=== PATIENT | male | born 1945 | race Caucasian/White ===

== ENCOUNTER → 2017-02-14 | Outpatient (CLI) | payer MEDICARE, BC ==
[~2017-02-14] MED LIST: ADVA100A INH; ASPI81CH CHEW; CIAL5TAB PO; CYAN1TAB24 PO; D32000TA; LISI40TA PO; METF500T PO; METO25TA3 PO; MULT1TAB64; SIMV40TA PO; TAMS0.4C4 PO; VESI10TA PO
--- NOTE | 2017-02-22 10:58 | RADRPT ---
EXAM DATE/TIME: 02/14/2017 13:58 [facility] COMPARISON : No previous studies available for comparison. INDICATIONS : Evaluate chart and images for possible cryoablation HISTORY OF PRESENT ILLNESS: 71-year-old gentleman with a 2.7 cm lesion on the left kidney identified on outside postcontrast CTA of the abdomen. One review, I believe that there is some fat density mass lesion suggesting an a ngiomyolipoma. As such, I would recommend a noncontrasted CT scan of the abdomen for confirmation. IMAGING STUDIES: Outside CTA of the abdomen dated 01-31-2017 ASSESSMENT: 2.7 cm lesion in the left kidney appears to contain some fat density and may represent an angiomyolip harshad. PLAN: Noncontrasted CT scan of the abdomen is suggested for confirmation. TIME SPENT: 20 minutes Ced Damon MD on February 22, 2017 at 10:52 Board Certified Radiologist. This report was verified electronically.
== END ==
LOC: HRAD 12:48
PROVIDERS: ATTEND Urology
DX: N28.9 Disorder of kidney and ureter, unspecified (principal)

== ENCOUNTER 2017-03-21 13:48 | Day surgery (SDC) | payer MEDICARE, BC ==
[2017-03-21] MEDS ORDERED: ADVA100A INH (14:07)
[2017-03-21] MEDS ORDERED: VESI10TA PO (14:07)
[2017-03-21] MEDS ORDERED: CIAL5TAB PO (14:07)
[2017-03-21] MEDS ORDERED: SIMV40TA PO (14:07)
[2017-03-21] MEDS ORDERED: MULT1TAB64 (14:07)
[2017-03-21] MEDS ORDERED: METO25TA3 PO (14:07)
[2017-03-21] MEDS ORDERED: TAMS0.4C4 PO (14:07)
[2017-03-21] MEDS ORDERED: ASPI81CH CHEW (14:07)
[2017-03-21] MEDS ORDERED: METF500T PO (14:07)
[2017-03-21] MEDS ORDERED: CYAN1TAB24 PO (14:07)
[2017-03-21] MEDS ORDERED: LISI40TA PO (14:07)
[2017-03-21] MEDS ORDERED: D32000TA (14:07)
[2017-03-21 14:14] VITALS: BP 115/80; PULSE 88; RESP 18; TEMP 98; O2SAT 92
--- NOTE | 2017-03-21 16:40 | RADRPT ---
EXAM DATE/TIME: 03/21/2017 14:13 [facility] COMPARISON : INDICATIONS : Left renal mass biopsy with cryoablation OBJECTIVE: Temperature: 98.0 Heart Rate: 88 Blood Pressure: 115/80 Respiratory: 18 Oximetry: 92 PNEUMONIA VACCINE: YES HISTORY OF PRESENT ILLNESS: 71-year-old male with history of incidentally diagnosed 2.7 cm left renal mass following CTA examinat ion for apparent left leg claudication. He does have a history of both prostate CA and bladder CA sta tus post recent pelvic floor strengthening with apparent excellent results. Currently he is without n ew urinary complaints and denies hematuria or unintentional weight loss. PAST MEDICAL HISTORY : 1. Hypertension. 2. Chronic obstructive pulmonary disease. 3. Bladder Cancer 4. Prostate Cancer 5. Hypercholesterolemia. 6. Diabetes mellitus type 2. PAST SURGICAL HISTORY : 1. Inguinal Hernia Repair SOCIAL HISTORY : Social alcohol use. Social alcohol use. Tobacco; ALLERGIES: 1. Penicillin MEDICATIONS: 1. Xvesath23 mg q.d. 2. Fluticasone, Salmeterol mcg b.i.d. 3. Metoprolol 25 mg b.i.d. 4. Metformin 500 mg b.i.d. 5. Lisinopril 40 mg q.d. 6. Vesicare 10 mg q.d. 7. Simvastatin 40 mg q.d. 8. Cialis 5 mg q.d. 9. Multivitamin mg q.d. PHYSICAL EXAMINATION: General: Well-nourished and in no acute distress. Abdomen: Soft and nontender. IMAGING STUDIES: CT examination dated 02/26/2017 demonstrates a solid 3 cm mass arising from the anterior left mid renal pole without evidence for macroscopic fat. Outside CTA examination of the abdomen is unavailable for review but report confirms that this mass enhances. No evidence for perinephric extension. ASSESSMENT: 71-year-old male with history of incidentally diagnosed solid 3 cm anterior mid left renal pole mass. Although he has a history of bladder CA, this mass does not appear to be urothelial and is most cons istent with renal cell carcinoma. Extended discussion regarding surgical options versus biopsy and th ermal ablation with the patient and his . All questions were answered. Technically, this mass is moderately challenging for ablation due to anterior location and proximity to loops of small bowel which may require hydro or pneumo dissection. The R,E.N.A.L. score is 7, med ium complexity. PLAN: Tentative plan for percutaneous CT-guided biopsy and cryoablation. TIME SPENT: 25 minutes Law Smart MD on March 21, 2017 at 16:09 Board Certified Radiologist. This report was verified electronically.
== END 2017-03-21 16:06 | disposition home or self-care (01) ==
LOC: HROP 13:48 → HRIP 13:49 → HROP 16:06
PROVIDERS: ATTEND Urology
DX: N28.9 Disorder of kidney and ureter, unspecified (principal); I10 Essential (primary) hypertension; E11.9 Type 2 diabetes mellitus without complications; E78.00 Pure hypercholesterolemia, unspecified; Z85.46 Personal history of malignant neoplasm of prostate; Z85.51 Personal history of malignant neoplasm of bladder
CPT/HCPCS: 99213; G0463

== ENCOUNTER 2017-04-12 07:17 | Inpatient (IN) | payer MEDICARE, BC ==
[~2017-04-12] VITALS: Ht 175.3 cm; Wt 91.1 kg
[2017-04-12 07:54] VITALS: BP 111/70; PULSE 73; RESP 18; TEMP 97.6; O2SAT 93
[2017-04-12 07:59] LABS: BASOPHIL % 0.6 % (0.0-2.0); EOSINOPHIL # 0.3 TH/MM3 (0-0.4); EOSINOPHIL % 3.9 % (0.0-4.0); HEMATOCRIT 44.9 % (39.0-51.0); HEMO FLAGS DIFF FINAL; LYMPH % 39.9 % (9.0-44.0); LYMPHOCYTE # 2.6 TH/MM3 (1.0-4.8); MEAN CELL VOLUME 96.2 FL (80.0-100.0); MEAN CORPUSCULAR HEMOGLOBIN 32.6 PG (27.0-34.0); MEAN CORPUSCULAR HGB CONC 33.9 % (32.0-36.0); MONO % 8.7 % (0.0-8.0); NEUT % 46.9 % (16.0-70.0); PLATELET COUNT 182 TH/MM3 (150-450); RED BLOOD COUNT 4.67 MIL/MM3 (4.50-5.90); RED CELL DISTRIBUTION WIDTH 13.4 % (11.6-17.2); WHITE BLOOD COUNT 6.4 TH/MM3 (4.0-11.0)
[2017-04-12 08:16] LABS: PROTHROMBIN TIME - PATIENT 10.7 SEC (9.8-11.6)
[2017-04-12 08:17] LABS: APTT (PATIENT) 28.1 SEC (24.3-30.1); BICARBONATE 26.6 MEQ/L (21.0-32.0); POTASSIUM 3.9 MEQ/L (3.5-5.1)
[2017-04-12] MEDS ORDERED: LACTATED RINGER'S 1000 ML IV PRN (08:30)
[2017-04-12] MEDS ORDERED: INSULIN HUMAN REGULAR 1,000 UNITS/10 ML VIAL SQ PRN (08:30)
[2017-04-12] MEDS ORDERED: SODIUM CHLORID 0.9% 500 ML IV PRN (08:30)
[2017-04-12] MEDS ORDERED: CHLORHEXIDINE GLUCONATE 2 % 1 PACK (2 CLOTHS) TOPICAL PRN (08:30)
[2017-04-12] MEDS ORDERED: POVIDONE IODINE 5% (ANTISEPSIS KIT) 4 APPLICATIONS EACH NARE PRN (08:30)
[2017-04-12] MEDS: SODIUM CHLOR 0.9% 1000 ML INJ 1,000 ML IV SCH ×2 (08:30→15:43)
[2017-04-12] MEDS ORDERED: METOPROLOL TARTRATE 25 MG TAB PO PRN (08:30)
[2017-04-12] MEDS ORDERED: PROPOFOL 200 MG/20 ML AMP IV ONE (08:56)
[2017-04-12] MEDS ORDERED: ONDANSETRON HCL 4 MG/2 ML VIAL IV PUSH ONE (08:57)
[2017-04-12] MEDS ORDERED: PHENYLEPH/NS 1000 MCG/10 ML SYR IV ONE (08:57)
[2017-04-12] MEDS ORDERED: LIDOCAINE 1%/EPINEPHrine 1:100,000 SOLN 20 ML VIAL ONE ×3 (09:29→10:40)
[2017-04-12] MEDS ORDERED: LEVOFLOXACIN 500 MG PREMIX INJ 100 ML IV SCH (11:00)
[2017-04-12] MEDS ORDERED: *RESP: ALBUTEROL 2.5 MG/3 ML NEB (PRN) PERIprocedural Use ONLY NEB ONE (14:19)
[2017-04-12] MEDS ORDERED: DO NOT ADM ANY ANTICOAGULANT DRUGS PRN (14:30)
[2017-04-12] MEDS ORDERED: MIDAZOLAM HCL 2 MG/2 ML VIAL ONE (14:41)
[2017-04-12 14:48] LABS: HEMATOCRIT 42.8 % (39.0-51.0); REVIEW FLAG FINAL
[2017-04-12] MEDS ORDERED: HYDROmorphone HCL PF 1 MG/ML VIAL IV PUSH PRN (15:00)
--- NOTE | 2017-04-12 15:05 | EKG ---
Date Performed: 04/12/2017 Time Performed: 07:49:02 PTAGE: 71 years EKG: Sinus rhythm WITH OCCASIONAL VENTRICULAR PREMATURE COMPLEXES MARKED LEFT AXIS DEVIATION RIGHT BUNDLE BRANCH BLOCK ABNORMAL ECG NO PREVIOUS TRACING DOCTOR: Andreina Aceves Interpretating Date/Time 04/12/2017 14:59:04
--- NOTE | 2017-04-12 15:10 | RADRPT ---
EXAM DATE/TIME: 04/12/2017 14:28 [facility] COMPARISON: No previous studies available for comparison. INDICATIONS : Pneumothorax. MEDICAL HISTORY : None. SURGICAL HISTORY : None. ENCOUNTER: Initial ACUITY: 1 day PAIN SCORE: 0/10 LOCATION: Left chest FINDINGS: Four-view left chest demonstrates a slightly elevated left hemidiaphragm. There is a le ft-sided pigtail catheter that is barely entering the thoracic cavity. I do not see a pneumothorax b ut there is no significant pleural effusion. CONCLUSION: Pigtail catheter on the left side in uncertain position, it may not be within the tho racic cavity. No pneumothorax or significant pleural effusion seen. Jose Luis Cho MD on April 12, 2017 at 15:07 Board Certified Radiologist. This report was verified electronically.
--- NOTE | 2017-04-12 15:57 | RADRPT ---
EXAM DATE/TIME: 04/12/2017 15:34 [facility] COMPARISON: CHEST EXPIRATION ONLY, April 12, 2017, 14:28. INDICATIONS : Chest tube removal, shortness of breath. MEDICAL HISTORY : None. SURGICAL HISTORY : None. ENCOUNTER: Subsequent ACUITY: 1 day PAIN SCORE: 2/10 LOCATION: Left chest. FINDINGS: Interval removal of the dislodged left-sided chest tube. No significant pneumothorax. Elevation of th e left hemidiaphragm. Mild airspace disease in the lower lobes bilaterally likely reflecting atelecta sis. Remainder of the exam is unchanged. CONCLUSION: 1. No significant pneumothorax following removal of dislodged chest tube. 2. Minimal bibasilar atelectasis. Law Smart MD on April 12, 2017 at 15:53 Board Certified Radiologist. This report was verified electronically.
--- NOTE | 2017-04-12 16:07 | RADRPT ---
EXAM DATE/TIME: 04/12/2017 11:46 INDICATIONS : 71-year-old male with history of 2.7 cm left anterior mid renal pole mass. Anesthesia and pain control was provided by the Anesthesia department. DEVICE(S): 1.) 18 gauge Bowers blunt needle MEDICAL HISTORY : Chronic obstructive pulmonary disease. Diabetes mellitus type 2. Peripheral vascular disease. Hyperte nsion. SURGICAL HISTORY : Inguinal hernia repair. ENCOUNTER: Initial ACUITY: 1 day PAIN SCORE: 0/10 LOCATION: Left flank PROCEDURE : 1. 20 gauge core biopsies of renal mass 2. Challenging CT guided cryoablation requiring hydro-dissection of the colon Under sterile conditions and using aseptic technique with CT guidance the mass was localized and sati sfactory approach was taken to access the lesion. Using automated exposure control and adjustment of the mA and/or kV according to patient size, radiation dose was kept as low as reasonably achievable to obtain optimal diagnostic quality images. DICOM format image data is available electronically for review and comparison. [employer] were employed using percutaneous technique employing the prescribed probes. 18 gauge blunt tip Bowers needle was advanced along the anterior perirenal space with anterior to m id pole mass. Approximately 100 cc of normal saline was then slowly injected through the needle. CT e xamination demonstrated excellent hydro dissection achieved with the abutting portion of the colon. N ext, a 20 gauge Temno biopsy device was advanced into the mass. Three core biopsies were obtained and submitted for pathology. A freeze-thaw, freeze-thaw technique was then employed and serial imaging demonstrated an ice ball encompassing the entire lesion. Post procedure images demonstrate expected postoperative changes without evidence of hematoma. CONCLUSION: 1. Challenging but technically successful cryoablation of a 2.7 cm left anterior mid renal pole mass. 2. Small procedural left sided pneumothorax treated with placement of small chest tube. Anticipate ch allenge with removal this p.m. or tomorrow a.m.. Law Smart MD on April 12, 2017 at 15:58 Board Certified Radiologist. This report was verified electronically.
--- NOTE | 2017-04-12 16:12 | RADRPT ---
EXAM DATE/TIME: 04/12/2017 11:46 INDICATIONS : Pneumothorax. Anesthesia and pain control was provided by the Anesthesia department. DEVICE(S): 1.) 18 gauge Bowers blunt needle 2.) 8 Fr [place] MEDICAL HISTORY : Chronic obstructive pulmonary disease. Diabetes mellitus type 2. Peripheral vascular disease. Hyperte nsion. SURGICAL HISTORY : Inguinal hernia repair. ENCOUNTER: Initial ACUITY: 1 day PAIN SCORE: 0/10 LOCATION: Left chest PROCEDURE : 1. CT guided chest tube placement for treatment of intraprocedural pneumothorax. The risks, benefits and alternatives to the procedure were explained and verbal and written consent w as obtained. The site was prepped in sterile fashion. Full sterile technique was used, including ca p, mask, sterile gloves and gown and a large sterile sheet. Hand hygiene and 2% chlorhexidine and/or betadine/alcohol prep was utilized per protocol for cutaneous antisepsis. The skin and subcutaneous tissues were infiltrated with local anesthetic solution. Using automated exposure control and adjus tment of the mA and/or kV according to patient size, radiation dose was kept as low as reasonably ach ievable to obtain optimal diagnostic quality images. DICOM format image data is available electronic ally for review and comparison. Following patient positioning in decubitus position, an appropriate overlying patient's left renal ma ss was marked. Skin was prepped and draped in usual sterile fashion. 1% lidocaine solution was inject ed for anesthesia. An 18 gauge Bowers needle was then advanced to approximately [address] scan was performed. This demonstrated interval significant diaphragmatic excursion with inferior displacement of the left lower lobe resulting in needle positioning in the very peripheral distal left lung base. Needle was therefore repositioned more caudally. At this time, CT examination demonstrated developme nt of a small left-sided pneumothorax. Decision was to proceed with placement of chest tube to allow continuation of the planned ablation procedure. A short Prather wire was advanced through the needle an d a small 8 Mont[place]erratian catheter was advanced [id number] and formed in the pleural space. This was then connected to Pleur-evac suction which resulted in near-complete resolution of the left-sided pneumot horax. Catheter was then secured to the skin and planned ablation procedure was continued. CONCLUSION: 1. Placement of 8 [place]errat[place] left-sided chest tube for treatment of intraprocedural pneumothorax during p erformance of left renal mass cryoablation. Law Smart MD on April 12, 2017 at 16:05 Board Certified Radiologist. This report was verified electronically.
[2017-04-12 17:09] VITALS: BP 115/64; PULSE 98; RESP 18; TEMP 97.5; O2SAT 94
[2017-04-12] MEDS ORDERED: LACTULOSE SYRUP 20 GM/30 ML CUP PO PRN (18:00)
[2017-04-12] MEDS ORDERED: MAGNESIUM HYDROXIDE SUSP 30 ML CUP PO PRN (18:00)
[2017-04-12] MEDS ORDERED: BISACODYL 10 MG SUPP RECTAL PRN (18:00)
[2017-04-12] MEDS ORDERED: SENNOSIDES 8.6 MG TAB PO PRN (18:00)
[2017-04-12] MEDS ORDERED: ONDANSETRON HCL 4 MG/2 ML VIAL IVP PRN (18:00)
[2017-04-12] MEDS ORDERED: SODIUM CHLORIDE 0.9% FLUSH 10 ML FLUSH IV FLUSH PRN (18:00)
[2017-04-12] MEDS ORDERED: NALOXONE HCL 0.4 MG/ML AMP IV PRN (18:00)
[2017-04-12] MEDS ORDERED: ACETAMINOPHEN 325 MG TAB PO PRN (18:00)
--- NOTE | 2017-04-12 18:04 | HHI.HP ---
[facility] Primary Care Physician Clay Valerio MD Admission Diagnosis Diagnoses: Chief Complaint: Pneumothorax after renal cryoablation and biopsy Travel History International Travel<30 Days: No Contact w/Intl Traveler <30 Da: No Traveled to Known Affected Are: No History of Present Illness This is a 71-year-old male hospitalized to 2 diabetes, COPD, hypertension, peripheral vascular disease, left kidney tumor who presented as outpatient from with left cryoablation and biopsy resulting from complications of a pneumothorax. Chest tube was placed but in the PACU patient removed the chest tube in which a chest x-ray was repeated which did not show any significant pneumothorax. Patient was seen after being transferred from the PACU. He was very anxious to go. He denies any shortness of breathing, chest pain, lightheadedness or dizziness, or palpitations. His only complaint was pain at the wound site. His and nurse at the bedside during the interview. Review of Systems Constitutional: DENIES: Diaphoretic episodes, Fatigue, Fever, Weight gain, Weight loss, Chills, Dizziness, Change in appetite, Night Sweats Endocrine: DENIES: Heat/cold intolerance, Polydipsia, Polyuria, Polyphagia Eyes: DENIES: Blurred vision, Diplopia, Eye inflammation, Eye pain, Vision loss , Photosensitivity, Double Vision Ears, nose, mouth, throat: DENIES: Tinnitus, Hearing loss, Vertigo, Nasal discharge, Oral lesions, Throat pain, Hoarseness, Ear Pain, Running Nose, Epistaxis, Sinus Pain, Toothache, Odynophagia Respiratory: DENIES: Apneas, Cough, Snoring, Wheezing, Hemoptysis, Sputum production, Shortness of breath Cardiovascular: DENIES: Chest pain, Palpitations, Syncope, Dyspnea on Exertion , PND, Lower Extremity Edema, Orthopnea, Claudication Gastrointestinal: DENIES: Abdominal pain, Black stools, Bloody stools, Constipation, Diarrhea, Nausea, Vomiting, Difficulty Swallowing, Anorexia Genitourinary: DENIES: Sexual dysfunction, Urinary frequency, Urinary incontinence, Urgency, Hematuria, Dysuria, Nocturia, Penile Discharge, Testicular Pain, Testicular Swelling Musculoskeletal: DENIES: Joint pain, Muscle aches, Stiffness, Joint Swelling, Back pain, Neck pain Integumentary: DENIES: Abnormal pigmentation, Nail changes, Pruritus, Rash Hematologic/lymphatic: DENIES: Bruising, Lymphadenopathy Immunologic/allergic: DENIES: Eczema, Urticaria Neurologic: DENIES: Abnormal gait, Headache, Localized weakness, Paresthesias, Seizures, Speech Problems, Tremor, Poor Balance Psychiatric: DENIES: Anxiety, Confusion, Mood changes, Depression, Hallucinations, Agitation, Suicidal Ideation, Homicidal Ideation, Delusions Pain at wound site. Past Family Social History Past Medical History 2 diabetes, COPD, hypertension, left kidney tumor, peripheral vascular disease, history of bladder cancer, history of prostate cancer, squamous cell carcinoma the skin, ulnar nerve neuropathy Past Surgical History Hernia repair seeding of prostate Cataract removal Reported Medications Centrum Silver Men Tablet (Multivit-Min/FA/Lycopen/Lutein) 1 Each Tablet D3 (Cholecalciferol) 2,000 Unit Tab B12 (Cyanocobalamin) 1,000 Mcg Tab 2,500 Mcg PO DAILY Cialis (Tadalafil) 5 Mg Tab 5 Mg PO DAILY Do not exceed 1 dose/day. Simvastatin 40 Mg Tab 40 Mg PO HS Vesicare (Solifenacin) 10 Mg Tab 10 Mg PO DAILY Tamsulosin (Tamsulosin HCl) 0.4 Mg Cap 0.4 Mg PO HS Lisinopril 40 Mg Tab 40 Mg PO DAILY Metformin (Metformin HCl) 500 Mg Tab 500 Mg PO BIDPC With meals Metoprolol Tartrate 25 Mg Tab 25 Mg PO BID Advair Diskus Inh (Fluticasone-Salmeterol Inh) 100-50 Mcg/Blist Aer 1 Puff INH BID Rinse mouth after use. Aspirin 81 Mg Chew 81 Mg CHEW DAILY Allergies: Coded Allergies: Penicillin (Verified Allergy, Severe, anphalis, 04/12/17) Active Ordered Medications Current Medications Lactated Ringer's 1,000 ml @ 30 mls/hr Q24H PRN IV SEE LABEL COMMENTS; Start at 08:30; Stop 04/15/17 at 08:29 Sodium Chloride (NS 500 ml Inj) 500 ml @ 30 mls/hr [id number] PRN IV SEE LABEL COMMENTS; Start 04/12/17 at 08:30; Stop 04/15/17 at 08:29 Metoprolol Tartrate (Lopressor) 25 mg USABILITY ARCHITECT PRN PO SEE LABEL COMMENTS; Start 04/12/17 at 08:30; Stop 04/15/17 at 08:29 Povidone Iodine (Betadine 5% Antisepsis Kit) 1 applic USABILITY ARCHITECT PRN EACH NARE SEE LABEL COMMENTS; Start 04/12/17 at 08:30; Stop 04/15/17 at 08:29 Chlorhexidine Gluconate (Chlorhexidine 2% Cloth) 3 pack USABILITY ARCHITECT PRN TOPICAL SEE LABEL COMMENTS; Start 04/12/17 at 08:30; Stop 04/15/17 at 08:29 Insulin Human Regular See Protocol Table ... USABILITY ARCHITECT PRN SQ SEE PROTOCOL TABLE ; Start 04/12/17 at 08:30; Stop 04/15/17 at 08:29 Sodium Chloride (NS 1000 ml Inj) 1,000 ml @ 30 mls/hr Q24H IV Last administered on 04/12/17 15:43; Start 04/12/17 at 08:30 Lidocaine/ Epinephrine (Xylocaine-Epi 1%-1:100,000 Inj) 20 ml STK-MED ONCE .ROUTE ; Start 04/12/17 at 09:29; Stop 04/12/17 at 09:30; Status DC Lidocaine/ Epinephrine (Xylocaine-Epi 1%-1:100,000 Inj) 20 ml STK-MED ONCE .ROUTE Last administered on 04/12/17 09:31; Start 04/12/17 at 09:31; Stop at 09:32; Status DC Lidocaine/ Epinephrine 20 ml 20 ml STK-MED ONCE .ROUTE ; Start 04/12/17 at 10:40 ; Stop 04/12/17 at 10:41; Status DC Levofloxacin/ Dextrose (Levaquin 500 Mg Premix Inj) 100 ml @ 100 mls/hr USABILITY ARCHITECT IV ; Start 04/12/17 at 11:00; Stop 04/12/17 at 21:00 Hydromorphone HCl (Dilaudid Pf Inj) 0.5 mg Q2HR PRN IV PUSH severe pain 4-10; Start 04/12/17 at 15:00 Albuterol Sulfate (*ALBUTEROL NEB PERIprocedure ONLY) 2.5 mg STK-MED ONCE NEB Last administered on 04/12/17 14:27; Start 04/12/17 at 14:19; Stop 04/12/17 at 14:20; Status DC Midazolam HCl (Versed Inj) 2 mg STK-MED ONCE .ROUTE ; Start 04/12/17 at 14:41; Stop 04/12/17 at 14:42; Status DC Fentanyl Citrate (fentaNYL INJ) 200 mcg STK-MED ONCE .ROUTE ; Start 04/12/17 at 14:41; Stop 04/12/17 at 14:42; Status DC Family History Father had a history of type 2 diabetes and from a heart attack at the age of 94. Mother had a history of pancreatic cancer. Social History Patient was at home with his . He smokes cigars for about 10-20 years. Rarely drinks any alcohol. Denies any recreational drug use. Physical Exam Vital Signs Vital Signs Date Time Temp Pulse Resp B/P Pulse Ox O2 Delivery O2 Flow Rate FiO2 04/12/17 17:15 Nasal Cannula 4.00 04/12/17 17:09 97.5 98 18 115/64 94 04/12/17 16:00 93 21 108/56 95 Nasal Cannula 4 04/12/17 15:45 91 22 103/62 95 Nasal Cannula 4 04/12/17 15:30 97.3 88 21 101/58 95 Nasal Cannula 4 04/12/17 15:15 87 21 103/58 94 Nasal Cannula 4 04/12/17 15:00 82 23 107/62 96 Nasal Cannula 4 04/12/17 14:45 80 21 106/59 95 Nasal Cannula 4 04/12/17 14:27 96.5 82 18 122/79 91 Nasal Cannula 3 04/12/17 07:54 93 Room Air 04/12/17 07:54 97.6 73 18 111/70 93 Physical Exam GENERAL: This is a well-nourished, well-developed patient, in no apparent distress. SKIN: Wound on the left side of the chest with dressing in place. HEAD: Atraumatic. Normocephalic. No temporal or scalp tenderness. EYES: Pupils equal round and reactive. Extraocular motions intact. No scleral icterus. No injection or drainage. ENT: Nose without bleeding, purulent drainage or septal hematoma. Throat without erythema, tonsillar hypertrophy or exudate. Uvula midline. Airway patent. NECK: Trachea midline. No JVD or lymphadenopathy. Supple, nontender, no meningeal signs. CARDIOVASCULAR: Regular rate and rhythm without murmurs, gallops, or rubs. RESPIRATORY: Distant lung sounds but relatively clear bilaterally but there is some scattered mild wheezing on the right mid to lower lobe. GASTROINTESTINAL: Abdomen soft, non-tender, nondistended. No hepato-splenomegaly , or palpable masses. No guarding. MUSCULOSKELETAL: Extremities without clubbing, cyanosis, or edema. No joint tenderness, effusion, or edema noted. No calf tenderness. Negative Homans sign bilaterally. NEUROLOGICAL: Awake and alert. Cranial nerves II through XII intact. Motor and sensory grossly within normal limits. Five out of 5 muscle strength in all muscle groups. Normal speech. Laboratory Laboratory Tests Test 04/12/17 04/12/17 07:45 14:34 White Blood Count 6.4 Red Blood Count 4.67 Hemoglobin 15.2 14.3 Hematocrit 44.9 42.8 Mean Corpuscular Volume 96.2 Mean Corpuscular Hemoglobin 32.6 Mean Corpuscular Hemoglobin 33.9 Concent Red Cell Distribution Width 13.4 Platelet Count 182 Mean Platelet Volume 8.3 Neutrophils (%) (Auto) 46.9 Lymphocytes (%) (Auto) 39.9 Monocytes (%) (Auto) 8.7 Eosinophils (%) (Auto) 3.9 Basophils (%) (Auto) 0.6 Neutrophils # (Auto) 3.0 Lymphocytes # (Auto) 2.6 Monocytes # (Auto) 0.6 Eosinophils # (Auto) 0.3 Basophils # (Auto) 0.0 CBC Comment DIFF FINAL Differential Comment Prothrombin Time 10.7 Prothromb Time International 1.0 Ratio Activated Partial 28.1 Thromboplast Time Sodium Level 139 Potassium Level 3.9 Chloride Level 106 Carbon Dioxide Level 26.6 Anion Gap 6 Blood Urea Nitrogen 20 Creatinine 0.88 Estimat Glomerular Filtration 85 Rate Random Glucose 136 Calcium Level 8.9 Result Diagram: 04/12/17 1434 04/12/17 0745 Imaging Last Impressions Chest X-Ray 04/12/17 0000 Signed Impressions: Service Date/Time: March 15:34 - CONCLUSION: 1. No significant pneumothorax following removal of dislodged chest tube. 2. Minimal bibasilar atelectasis. Law Smart MD Chest Tube Insertion 04/12/17 0000 Signed Impressions: Service Date/Time: March 11:46 - CONCLUSION: 1. Placement of 8 [place] left-sided chest tube for treatment of intraprocedural pneumothorax during performance of left renal mass cryoablation. Law Smart MD CT Guided Tissue Ablation 04/12/17 0000 Signed Impressions: Service Date/Time: March 11:46 - CONCLUSION: 1. Challenging but technically successful cryoablation of a 2.7 cm left anterior mid renal pole mass. 2. Small procedural left sided pneumothorax treated with placement of small chest tube. Anticipate challenge with removal this p.m. or tomorrow a.m.. Law Smart MD Assessment and Plan Assessment and Plan 71-year-old with left renal mass who had cryo-ablation and biopsy with complication of pneumothorax Pneumothorax -Due to complications from procedure. Patient had chest tube placed but he self removed it. Repeated chest x-ray showed no significant pneumothorax following removal of dislodged chest tube. -At the moment patient is asymptomatic and doing well. Will continue to monitor on continuous pulse oximetry. -Continue the supplemental with oxygen and needed. Left renal mass -Status post cryoablation and biopsy done today. -Management per IR. Pending biopsy. Type 2 diabetes -Hold metformin due to recent procedure. With the patient on insulin sliding scale and hypoglycemic protocol. Hypertension -At the moment patient is relatively normotensive. We'll hold antihypertensive medication except for metoprolol. -Will continue to monitor and adjust accordingly. Peripheral vascular disease, history of bladder cancer, history of prostate cancer, hyperlipidemia, COPD -Continue home medication. Will hold aspirin due to recent biopsy. DVT prophylaxis -SCD/teds. Discussed Condition With patient, his and nurse Physician Certification 2 Midnight Certification Type: Admission for Inpatient Services Order for Inpatient Services The services are ordered in accordance with Medicare regulations or non- Medicare payer requirements, as applicable. In the case of services not specified as inpatient-only, they are appropriately provided as inpatient services in accordance with the 2-midnight benchmark. Estimated LOS (days): 2 2 days is the estimated time the patient will need to remain in the hospital, assuming treatment plan goals are met and no additional complications. Post-Hospital Plan: Octavia Grove MD Apr 12, 2017 18:04
[2017-04-12] MEDS ORDERED: DEXTROSE 50% IN WATER 50 ML VIAL(D50) IV PRN (18:15)
[2017-04-12] MEDS ORDERED: ACETAMINOPHEN/HYDROcodone 325 MG/5 MG TAB PO PRN ×2 (18:15)
[2017-04-12] MEDS ORDERED: MORPHINE SULFATE 4 MG/ML INJ IV PUSH PRN (18:15)
[2017-04-12] MEDS ORDERED: SODIUM CHLOR 0.9% 1000 ML INJ 1,000 ML IV SCH (18:15)
[2017-04-12] MEDS ORDERED: GLUCAGON 1 MG/ML VIAL OTHER PRN (18:15)
[2017-04-12] MEDS: RESP: ALBUTEROL 2.5 MG/IPRATROPIUM 0.5 MG NEB (SCH) NEB (20:40)
[2017-04-12 20:43] VITALS: O2SAT 95
[2017-04-12 20:49] VITALS: O2SAT 97
[2017-04-12] MEDS: SODIUM CHLORIDE 0.9% FLUSH 10 ML FLUSH IV FLUSH SCH (21:00)
[2017-04-12] MEDS: INSULIN ASPART SUPPLEMENTAL SCALE SQ SCH (21:00)
[2017-04-12] MEDS ORDERED: PRAVASTATIN SOD 80 MG TAB PO SCH (21:00)
[2017-04-12 21:40] VITALS: BP 132/65; PULSE 110; RESP 22; TEMP 97.9; O2SAT 97
[2017-04-12] MEDS: BUDESONIDE-FORMOTEROL 160/4.5 MCG INHALER INH SCH (22:05)
[2017-04-12] MEDS: DOCUSATE SODIUM 50 MG/SENNA 8.6 MG TAB PO SCH (22:06)
[2017-04-12] MEDS: METOPROLOL TARTRATE 25 MG TAB PO SCH (22:06)
[2017-04-13] VITALS (7 sets, daily range): BP systolic 124–141; BP diastolic 68–80; PULSE 80–102; RESP 18–20; TEMP 98.1–98.4; O2SAT 94–96
[2017-04-13 02:05] LABS: HEMATOCRIT 40.2 % (39.0-51.0); REVIEW FLAG FINAL
[2017-04-13] MEDS: INSULIN ASPART SUPPLEMENTAL SCALE SQ SCH ×2 (06:00→11:00)
[2017-04-13 07:41] LABS: HEMATOCRIT 41.8 % (39.0-51.0); MEAN CELL VOLUME 97.4 FL (80.0-100.0); MEAN CORPUSCULAR HEMOGLOBIN 32.5 PG (27.0-34.0); MEAN CORPUSCULAR HGB CONC 33.4 % (32.0-36.0); PLATELET COUNT 161 TH/MM3 (150-450); RED BLOOD COUNT 4.29 MIL/MM3 (4.50-5.90); RED CELL DISTRIBUTION WIDTH 13.5 % (11.6-17.2); REVIEW FLAG FINAL; WHITE BLOOD COUNT 10.5 TH/MM3 (4.0-11.0)
[2017-04-13 08:19] LABS: BICARBONATE 25.9 MEQ/L (21.0-32.0); POTASSIUM 3.8 MEQ/L (3.5-5.1)
--- NOTE | 2017-04-13 08:21 | RADRPT ---
EXAM DATE/TIME: 04/13/2017 07:52 [facility] COMPARISON: CHEST EXPIRATION ONLY, April 12, 2017, 14:28. INDICATIONS : Coughing, short of breath when ambulating, post chest tube removal from left side MEDICAL HISTORY : Chronic obstructive pulmonary disease. SURGICAL HISTORY : renal biopsy, chest tube ENCOUNTER: Subsequent ACUITY: 2 days PAIN SCORE: 0/10 LOCATION: Left chest FINDINGS: A single frontal expiratory view of the chest was performed. The lungs are symmetrically aerated and clear. No evidence of pneumothorax. Minimal linear atelectasis within the right base. Mediastinal structures are in the midline. The cardio-mediastinal contours and bronchopulmonary markings are unremarkable for an expiratory exam . Osseous structures are intact. CONCLUSION: No pneumothorax. Minimal right basilar atelectasis. Perry Lamas Jr., MD on April 13, 2017 at 8:19 Board Certified Radiologist. This report was verified electronically.
[2017-04-13] MEDS: RESP: ALBUTEROL 2.5 MG/IPRATROPIUM 0.5 MG NEB (SCH) NEB ×2 (08:28→15:52)
[2017-04-13] MEDS ORDERED: TOLTERODINE TARTRATE 4 MG CAP LA PO SCH (09:00)
[2017-04-13] MEDS ORDERED: CYANOCOBALAMIN 1,000 MCG TAB PO SCH (09:00)
[2017-04-13] MEDS ORDERED: HYDR-3516 PO (10:12)
[2017-04-13] MEDS: METOPROLOL TARTRATE 25 MG TAB PO SCH (10:16)
[2017-04-13] MEDS: DOCUSATE SODIUM 50 MG/SENNA 8.6 MG TAB PO SCH (10:16)
[2017-04-13] MEDS: BUDESONIDE-FORMOTEROL 160/4.5 MCG INHALER INH SCH (10:18)
[2017-04-13] MEDS: SODIUM CHLORIDE 0.9% FLUSH 10 ML FLUSH IV FLUSH SCH (10:20)
[2017-04-13] MEDS ORDERED: OXYGENDME NAS.CANULA (12:12)
[2017-04-13] MEDS ORDERED: VENTAER INH (15:08)
--- NOTE | 2017-04-13 15:11 | HHI.DCPOC ---
Discharge Care Plan Diagnosis: (1) COPD (chronic obstructive pulmonary disease) (2) Hypoxia (3) Pneumothorax (4) Status post cryoablation Goals to Promote Your Health * To prevent worsening of your condition and complications * To maintain your health at the optimal level Directions to Meet Your Goals Take your medications as prescribed Follow your dietary instruction Follow activity as directed Keep your appointments as scheduled Take your immunizations and boosters as scheduled If your symptoms worsen call your PCP, if no PCP go to Urgent Care Center or Emergency Room Smoking is Dangerous to Your Health. Avoid second hand smoke Call the 24-hour hour crisis hotline for domestic abuse at Octavia Land MD Apr 13, 2017 15:11
--- NOTE | 2017-04-13 15:11 | HHI.DS ---
Discharge Summary Admission Date Apr 12, 2017 at 16:22 Admitting Diagnosis Brief History - From Admission This is a 71-year-old male hospitalized to 2 diabetes, COPD, hypertension, peripheral vascular disease, left kidney tumor who presented as outpatient from with left cryoablation and biopsy resulting from complications of a pneumothorax. Chest tube was placed but in the PACU patient removed the chest tube in which a chest x-ray was repeated which did not show any significant pneumothorax. Patient was seen after being transferred from the PACU. He was very anxious to go. He denies any shortness of breathing, chest pain, lightheadedness or dizziness, or palpitations. His only complaint was pain at the wound site. His and nurse at the bedside during the interview. CBC/BMP: 04/13/17 0622 04/13/17 0622 Significant Findings Laboratory Tests Test 04/12/17 04/13/17 07:45 06:22 Monocytes (%) (Auto) 8.7 % (0.0-8.0) Blood Urea Nitrogen 20 MG/DL (7-18) Estimat Glomerular Filtration 85 ML/MIN (>89) Rate Random Glucose 136 MG/DL (74-106) Red Blood Count 4.29 MIL/MM3 (4.50-5.90) Calcium Level 8.2 MG/DL (8.5-10.1) Pt Condition on Discharge: Stable Discharge Disposition: Discharge Home Discharge Instructions DIET: Follow Instructions for: Heart Healthy Diet, Diabetic Diet Activities you can perform: Regular-No Restrictions Octavia Land MD Apr 13, 2017 15:11
--- NOTE | 2017-04-14 11:28 | RADRPT ---
EXAM DATE/TIME: 04/12/2017 11:46 [facility] COMPARISON: No previous studies available for comparison. INDICATIONS : Left renal mass. BIOPSY SITE: Left flank. Anesthesia and pain control was provided by the Anesthesia department. DEVICE(S): 1.) 18 gauge Bowers blunt needle 2.) 20 gauge Temno core biopsy needle MEDICAL HISTORY : Chronic obstructive pulmonary disease. Hypertension. Peripheral vascular disease. Diabetes. SURGICAL HISTORY : Inguinal hernia repair. ENCOUNTER: Initial ACUITY: 1 day PAIN SCORE: 0/10 LOCATION: flank A total of two core specimen(s) were obtained and sent to the laboratory for pathologic evaluation. PROCEDURE: 1. CT guided renal biopsy. Prior to the procedure informed consent was obtained. Any appropriate prior imaging studies were rev iewed. Using automated exposure control and adjustment of the mA and/or kV according to patient size, radiat ion dose was kept as low as reasonably achievable to obtain optimal diagnostic quality images. DICOM format image data is available electronically for review and comparison. The site was prepped in a sterile fashion. Full sterile technique was used, including cap, mask, simran rile gloves and gown and a large sterile sheet. Hand hygiene and 2% chlorhexidine and/or betadine/al cohol prep was utilized per protocol for cutaneous antisepsis. The skin and subcutaneous tissues wer e infiltrated with local anesthetic solution. With CT guidance the previously identified target was localized. Biopsy was performed using the presc ribed needle as above. Adequate hemostasis was obtained with compression at the puncture site. Please note that this procedure was performed in combination with radiofrequency ablation of the monica l mass. Please see ablation report for additional details. CONCLUSION: Uncomplicated CT guided biopsy. Law Smart MD on April 14, 2017 at 11:25 Board Certified Radiologist. This report was verified electronically.
== END 2017-04-13 16:42 | disposition home or self-care (01) | DRG 982 ==
LOC: HROP 07:17 → HRIP 07:20 → N05A 16:22 → HROP 16:26
PROVIDERS: ADMIT Family Medicine; ATTEND Family Medicine
PROC: 0T513ZZ Destruction of Left Kidney, Percutaneous Approach (ICD-10-PCS; principal; 2017-04-12)
PROC: 0W9B30Z Drainage of Left Pleural Cavity with Drainage Device, Percutaneous Approach (ICD-10-PCS; 2017-04-12)
PROC: 0TB13ZX Excision of Left Kidney, Percutaneous Approach, Diagnostic (ICD-10-PCS; 2017-04-12)
DX: J95.811 Postprocedural pneumothorax (principal); J98.11 Atelectasis; J44.9 Chronic obstructive pulmonary disease, unspecified; C64.2 Malignant neoplasm of left kidney, except renal pelvis; E11.9 Type 2 diabetes mellitus without complications; I73.9 Peripheral vascular disease, unspecified; E78.5 Hyperlipidemia, unspecified; R09.02 Hypoxemia; F17.290 Nicotine dependence, other tobacco product, uncomplicated; I10 Essential (primary) hypertension; Z85.46 Personal history of malignant neoplasm of prostate; Z85.51 Personal history of malignant neoplasm of bladder; Z85.828 Personal history of other malignant neoplasm of skin; Z79.84 Long term (current) use of oral hypoglycemic drugs
CPT/HCPCS: 32557; 50200; 50593; 71010; 77012; 77013; 80048; 82948; 85014; 85018; 85025; 85027; 85610; 85730; 88305; 93005; 94620; 94640; 94664; 94762; C1729; C1769; J2250; J2370; J2405; J3010; J7030; J7613